=== PATIENT | female | born 1975 | race Caucasian/White ===

== ENCOUNTER 2024-10-20 09:51 | Outpatient (CLI) | payer OTHER, SELFPAY ==
--- NOTE | ~2024-10-20 | US_ITS ---
Pelvic ultrasound. Clinical History: Dysfunctional uterine bleeding Technique: Realtime transabdominal and transvaginal scanning of the pelvis was performed. Color flow Doppler and Doppler spectral analysis were performed. Findings: The uterus is anteverted. The endometrial stripe has a thickness of 3 mm. Suspected anteri or wall fibroid measuring 3.5 x 2.1 x 2.7 cm.. The right ovary measures 2.4 x 2.2 x 1.4 cm. Hemorrhagic right ovarian cyst measures 2.2 cm in diamet er. The left ovary is not visualized. No significant left ovarian or adnexal mass is seen. There is no evidence of free fluid in the cul de sac. Impression: Small hemorrhagic/complex right ovarian cyst measuring 2.2 cm is. Probable uterine fibroid, as above. Reviewed, dictated and finalized at [facility]. Impression: Small hemorrhagic/complex right ovarian cyst measuring 2.2 cm is. Probable uterine fibroid, as above.
--- OUTSIDE RECORDS SUMMARY | 2024-10-20 10:31 | XMS_ITS ---
Author Organization Unknown Address [address] [place] [address] [phone] Phone Care Team Providers Care Weatherization Administrator Name Role Phone [facility] Attending Unavailable NAGI Cole Primary Unavailable Immunization Immunization Date Status Additional Notes Code Code System Tdap 06/03/2013 Completed 115 CVX COVID-19, mRNA, LNP-S, PF, 1 00 mcg/0.5mL dose or 50 mcg/0.25mL dose 10/10/2020 Completed 207 CVX COVID-19, mRNA, LNP-S, PF, 1 00 mcg/0.5mL dose or 50 mcg/0.25mL dose 11/12/2020 Completed 207 CVX COVID-19, mRNA, LNP-S, PF, 1 00 mcg/0.5mL dose or 50 mcg/0.25mL dose 07/19/2021 Completed 207 CVX COVID-19, mRNA, LNP-S, PF, 5 0 mcg/0.5 mL 06/03/2023 Completed 312 CVX Results 4 PLEX RESPIRATORY COVID FLU RSV PCR - Collect Date/Time: 08/13/2024 09:48 [facility] ID: [id number] [address] [place] [address], [phone] LOINC: 49694-0 Test Value Unit Reference Range Code Code System Flag SARS CoV2 PCR NEGATIVE FLU A PCR NEGATIVE FLU B PCR NEGATIVE RSV PCR POSITIVE A SEND TO [facility]? YES Social History Type Status Start Date End Date Code Code Syst em Smoking History Never smoker (Never Smoked) [id number] SNOMED CT Sex Female Hospital Discharge Instructions Should you have any questions prior to discharge, please contact a member of your healthcare team. If you have left the hospital and have any questions, please contact your primary care physician. Reason For Referral No Data Found Plan of Treatment Digital Bill Screen Bilateral (23350) Digital Bill Diag L Unilateral (10994) 0 08/12/2023 US Breast (46884) 08/12/2023 Digital Bill Diag L Unilateral (32262) 0 08/12/2023 US Breast (24789) 08/12/2023 Digital Bill Diag L Unilateral (88168) 1 US Breast (77386) 05/04/2024 Digital Bill Diag L Unilateral (37556) 1 US Breast (49162) 05/04/2024 Digital Bill Diag L Unilateral (71537) 0 10/28/2023 US Breast (54396) 10/28/2023 Digital Bill Diag L Unilateral (45892) 0 10/28/2023 US Breast (79354) 10/28/2023 Digital Bill Diag Bilateral (73061) 07/03 US Breast (24085) 07/13/2024 Digital Bill Diag Bilateral (61810) 07/03 US Breast (66258) 07/13/2024 Encounters Encounter Diagnosis Start Date Code Code Sys tem Fever, unspecified 08/13/2024 SNOMED-CT Personal Care Team Section Performer Name Performer Role Active Date Inactive MIRTHA Marmolejo PCP - Primary care physician 2022-04-21
--- OUTSIDE RECORDS SUMMARY | 2024-10-20 10:31 | XMS_ITS ---
Author Organization Unknown Address [address] [place] [address] [phone] Phone Care Team Providers Care Recruiting Internship Name Role Phone NAGI Cole Attending Unavailable Immunization Immunization Date Status Additional Notes [...] mcg/0.5 mL 06/03/2023 Completed 312 CVX Results DIG 3D BILL SCREENING BILATER AL - Completed: 07/07/2023 10:21 LOINC: See Scanned Image Attachment for Report Dictated By: Trans Initials: BG Trans Date: 07/09/23 10:55 <<REPDIST>> Social History Type Status Start Date End Date Code Code Syst em Smoking History Never smoker (Never Smoked) [id number] SNOMED CT Sex Female Hospital Discharge Instructions Should you have any questions prior to discharge, please contact a member of your healthcare team. If you have left the hospital and have any questions, please contact your primary care physician. Reason For Referral No Data Found Plan of Treatment Digital Bill Screen Bilateral (01614) Digital Bill Diag L Unilateral (86054) 0 08/12/2023 US Breast (16695) 08/12/2023 Digital Bill Diag L Unilateral (32388) 0 08/12/2023 US Breast (10258) 08/12/2023 Digital Bill Diag L Unilateral (32628) 1 US Breast (75496) 05/04/2024 Digital Bill Diag L Unilateral (62399) 1 US Breast (67230) 05/04/2024 Digital Bill Diag L Unilateral (29671) 0 10/28/2023 US Breast (96670) 10/28/2023 Digital Bill Diag L Unilateral (63157) 0 10/28/2023 US Breast (03999) 10/28/2023 Digital Bill Diag Bilateral (81453) 07/03 US Breast (73889) 07/13/2024 Digital Bill Diag Bilateral (17379) 07/03 US Breast (32719) 07/13/2024 Encounters Encounter Diagnosis Start Date Code Code Sys tem Encounter for screening mamm ogram for malignant neoplasm of breast 07/07/2023 SNOMED-CT Personal Care Team Section Performer Name Performer Role Active Date Inactive Da te MIRTHA LAZAR PCP - Primary care physician 2022-04-21 Imaging Narrative Notes [facility] 07/09/2023 10:[address] [address] RADIOLOGY REPORT Patient Number: [id number] Patient Name: BJ MONTE Type: O/P MR Number: [id number] : 1975 Age: 48 Sex: F Room #: Admit Date: 07/07/23 Discharge Date 07/07/23 Ordering Physician: NAGI Cole Family Physician: NAGI Albert Physician: X-Ray Number : [id number] DIG 3D BILL SCREENING BILATERA 31147 COMPLETE:07/07/23 10:21 12467 (REASONS-DIG 3D BILL SCREENING BILATERAL: SCREENING See Scanned Image Attachment for Report Dictated By: Trans Initials: Trans Date: 07/09/23 10:55 <<REPDIST>>
--- OUTSIDE RECORDS SUMMARY | 2024-10-20 10:31 | XMS_ITS ---
Author Organization Unknown Address [address] [place] [address] [phone] Phone Care Team Providers Care Beer Still Runner Compounder Name Role Phone CHITO ULRICHIE Attending Unavailable NAGI Cole Primary Unavailable Immunization [...] mcg/0.5 mL 06/03/2023 Completed 312 CVX Results BASIC METABOLIC PANEL - Connor ect Date/Time: 11/10/2023 15:30 [facility] ID: [id number] [address] [place], [place], [id number] LOINC: 07327-9 Test Value Unit Reference Range Code Code System Flag FASTING NO BUN 15 mg/dL L=7 H=20 3094-0 LOINC CREATININE 0.90 mg/dL L=0.52 H=1.04 2160-0 LOINC GLUCOSE 94 mg/dL L=74 H=106 2345-7 LOINC CALCIUM 9.6 mg/dL L=8.3 H=10.5 26966-3 LOINC SODIUM 140 mmol/L L=132 H=144 2951-2 LOINC POTASSIUM 3.4 mmol/L L=3.5 H=5.1 2823-3 LOINC L CHLORIDE 104 mmol/L L=98 H=107 2075-0 LOINC CO2 24.0 mmol/L L=22.0 H=30.0 8-9 LOINC ANION GAP 15 L=10 H=20 90181-4 LOINC BUN/CREAT 16.7 3097-3 LOINC AGE 48 75633-6 LOINC eGFR NON-AFR 70 ml/min eGFR AFR AMER 85 ml/min Social History Type Status Start Date End Date Code Code Syst em Smoking History Never smoker (Never Smoked) [id number] SNOMED CT Sex Female Hospital Discharge Instructions Should you have any questions prior to discharge, please contact a member of your healthcare team. If you have left the hospital and have any questions, please contact your primary care physician. Reason For Referral No Data Found Plan of Treatment Digital Bill Screen Bilateral (49761) Digital Bill Diag L Unilateral (37734) 0 08/12/2023 US Breast (85829) 08/12/2023 Digital Bill Diag L Unilateral (52292) 0 08/12/2023 US Breast (52131) 08/12/2023 Digital Bill Diag L Unilateral (98393) 1 US Breast (93436) 05/04/2024 Digital Bill Diag L Unilateral (55709) 1 US Breast (44684) 05/04/2024 Digital Bill Diag L Unilateral (83693) 0 10/28/2023 US Breast (40961) 10/28/2023 Digital Bill Diag L Unilateral (72962) 0 10/28/2023 US Breast (20115) 10/28/2023 Digital Bill Diag Bilateral (08953) 07/03 US Breast (39174) 07/13/2024 Digital Bill Diag Bilateral (09129) 07/03 US Breast (20647) 07/13/2024 Encounters Encounter Diagnosis Start Date Code Code Sys tem Hypokalemia 11/10/2023 SNOMED-CT Personal Care Team Section Performer Name Performer Role Active Date Inactive Da te QUARTON, MIRTHA PCP - Primary care physician 2022-04-21
--- OUTSIDE RECORDS SUMMARY | 2024-10-20 10:31 | XMS_ITS ---
Author Organization Unknown Address [address] [place] [address] [phone] Phone Care Team Providers Care Radio Repair Teacher Name Role Phone CHITO ULRICHIE Attending Unavailable [...] Completed 312 CVX Results DIG 3D BILL DIAG L UNILATERA - Completed: 05/04/2024 09:43 LOINC: See Scanned Image Attachment for Report Dictated By: Trans Initials: BG Trans Date: 05/05/24 15:08 <<REPDIST>> Social History Type Status Start Date End Date Code Code Syst em Smoking History Never smoker (Never Smoked) [id number] SNOMED CT Sex Female Hospital Discharge Instructions Should you have any questions prior to discharge, please contact a member of your healthcare team. If you have left the hospital and have any questions, please contact your primary care physician. Reason For Referral No Data Found Plan of Treatment Digital Bill Screen Bilateral (95292) Digital Bill Diag L Unilateral (80683) 0 08/12/2023 US Breast (52615) 08/12/2023 Digital Bill Diag L Unilateral (11222) 0 08/12/2023 US Breast (18530) 08/12/2023 Digital Bill Diag L Unilateral (90429) 1 US Breast (78523) 05/04/2024 Digital Bill Diag L Unilateral (87232) 1 US Breast (65628) 05/04/2024 Digital Bill Diag L Unilateral (68707) 0 10/28/2023 US Breast (13951) 10/28/2023 Digital Bill Diag L Unilateral (58382) 0 10/28/2023 US Breast (98917) 10/28/2023 Digital Bill Diag Bilateral (32183) 07/03 US Breast (46400) 07/13/2024 Digital Bill Diag Bilateral (01496) 07/03 US Breast (02477) 07/13/2024 Encounters Encounter Diagnosis Start Date Code Code Sys tem Disorder of breast 05/04/2024 [id number] SNOMED-CT Personal Care Team Section Performer Name Performer Role Active Date Inactive Da MIRTHA Shelley PCP - Primary care physician 2022-04-21 Imaging Narrative Notes [facility] 05/05/2024 15:[address] [address] RADIOLOGY REPORT Patient Number: [id number] Patient Name: BJ MONTE Type: O/P MR Number: [id number] : 1975 Age: 48 Sex: F Room #: Admit Date: 05/04/24 Discharge Date 05/04/24 Ordering Physician: CHITO GOLDMAN Family Physician: NAGI Albert Physician: X-Ray Number : [id number] DIG 3D BILL DIAG L UNILATERA [id number] COMPLETE:05/04/24 09:43 TLS [id number] (REASONS-DIG 3D BILL DIAG L UNILATERAL: asymmetry See Scanned Image Attachment for Report Dictated By: Trans Initials: BG Trans Date: 05/05/24 15:08 <<REPDIST>>
--- OUTSIDE RECORDS SUMMARY | 2024-10-20 10:32 | XMS_ITS ---
Author Organization Unknown Address [address] [place] [address] [phone] Phone Care Team Providers Care Metal Reed Tuner Name Role Phone CHITO ULRICHIE Attending Unavailable [...] 3D BILL DIAG L UNILATERA - Completed: 10/28/2023 09:41 LOINC: See Scanned Image Attachment for Report Dictated By: Trans Initials: BG Trans Date: 10/29/23 09:33 <<REPDIST>> US BREAST LEFT LTD - Complet ed: 10/28/2023 10:17 LOINC: See Scanned Image Attachment for Report Dictated By: Trans Initials: BG Trans Date: 10/29/23 09:32 <<REPDIST>> Social History Type Status Start Date End Date Code Code Syst em Smoking History Never smoker (Never Smoked) [id number] SNOMED CT Sex Female Hospital Discharge Instructions Should you have any questions prior to discharge, please contact a member of your healthcare team. If you have left the hospital and have any questions, please contact your primary care physician. Reason For Referral No Data Found Plan of Treatment Digital Bill Screen Bilateral (35745) Digital Bill Diag L Unilateral (94640) 0 08/12/2023 US Breast (39333) 08/12/2023 Digital Bill Diag L Unilateral (92776) 0 08/12/2023 US Breast (37922) 08/12/2023 Digital Bill Diag L Unilateral (59720) 1 US Breast (76494) 05/04/2024 Digital Bill Diag L Unilateral (12837) 1 US Breast (63152) 05/04/2024 Digital Bill Diag L Unilateral (69059) 0 10/28/2023 US Breast (61065) 10/28/2023 Digital Bill Diag L Unilateral (06956) 0 10/28/2023 US Breast (58112) 10/28/2023 Digital Bill Diag Bilateral (74766) 07/03 US Breast (15163) 07/13/2024 Digital Bill Diag Bilateral (04355) 07/03 US Breast (39608) 07/13/2024 Encounters Encounter Diagnosis Start Date Code Code Sys tem Other specified disorders of breast 10/28/2023 SNOMED-CT Personal Care Team Section Performer Name Performer Role Active Date Inactive Da MIRTHA Shelley PCP - Primary care physician 2022-04-21 Imaging Narrative Notes [facility] 10/29/2023 09:[address] [address] RADIOLOGY REPORT Patient Number: [id number] Patient Name: BJ MONTE Type: O/P MR Number: [id number] : 1975 Age: 48 Sex: F Room #: Admit Date: 10/28/23 Discharge Date 10/28/23 Ordering Physician: CHITO GOLDMAN Family Physician: NAGI Albert Physician: X-Ray Number : [id number] US BREAST LEFT LTD [id number] COMPLETE:10/28/23 10:17 [facility] [address] See Scanned Image Attachment for Report Dictated By: Trans Initials: BG Trans Date: 10/29/23 09:32 <<REPDIST>> [facility] 10/29/2023 09:[address] [address] RADIOLOGY REPORT Patient Number: [id number] Patient Name: BJ MONTE Type: O/P MR Number: [id number] : 1975 Age: 48 Sex: F Room #: Admit Date: 10/28/23 Discharge Date 10/28/23 Ordering Physician: CHITO GOLDMAN Family Physician: NAGI Albert Physician: X-Ray Number : [id number] DIG 3D BILL DIAG L UNILATERA [id number] COMPLETE:10/28/23 09:41 TALI 30173 (REASONS-DIG 3D BILL DIAG L UNILATERAL: BREAST ASYMMETRY See Scanned Image Attachment for Report Dictated By: Lala Initials: BG Reeves Date: 10/29/23 09:33 <<REPDIST>>
--- OUTSIDE RECORDS SUMMARY | 2024-10-20 10:32 | XMS_ITS ---
Author Organization Unknown Address [address] [place] [address] [phone] Phone Care Team Providers Care Asp Net C Developer Name Role Phone CHITO GOLDMAN Attending Unavailable NAGI Cole Primary Unavailable Immunization [...] 3D BILL DIAG L UNILATERA - Completed: 07/13/2024 11:32 LOINC: See Scanned Image Attachment for Report Dictated By: Trans Initials: BG Trans Date: 07/14/24 14:46 <<REPDIST>> Social History Type Status Start Date End Date Code Code Syst em Smoking History Never smoker (Never Smoked) [id number] SNOMED CT Sex Female Hospital Discharge Instructions Should you have any questions prior to discharge, please contact a member of your healthcare team. If you have left the hospital and have any questions, please contact your primary care physician. Reason For Referral No Data Found Plan of Treatment Digital Bill Screen Bilateral (82186) Digital Bill Diag L Unilateral (00112) 0 08/12/2023 US Breast (82215) 08/12/2023 Digital Bill Diag L Unilateral (10753) 0 08/12/2023 US Breast (14570) 08/12/2023 Digital Bill Diag L Unilateral (83085) 1 US Breast (83928) 05/04/2024 Digital Bill Diag L Unilateral (77293) 1 US Breast (11394) 05/04/2024 Digital Bill Diag L Unilateral (25137) 0 10/28/2023 US Breast (61029) 10/28/2023 Digital Bill Diag L Unilateral (28094) 0 10/28/2023 US Breast (78683) 10/28/2023 Digital Bill Diag Bilateral (77062) 07/03 US Breast (77891) 07/13/2024 Digital Bill Diag Bilateral (06801) 07/03 US Breast (22038) 07/13/2024 Encounters Encounter Diagnosis Start Date Code Code Sys tem Disorder of breast 07/13/2024 [id number] SNOMED-CT Personal Care Team Section Performer Name Performer Role Active Date Inactive Da te MIRTHA LAZAR PCP - Primary care physician 2022-04-21 Imaging Narrative Notes [facility] 07/14/2024 14:[address] [address] RADIOLOGY REPORT Patient Number: [id number] Patient Name: BJ MONTE Type: O/P MR Number: [id number] : 1975 Age: 49 Sex: F Room #: Admit Date: 07/13/24 Discharge Date 07/13/24 Ordering Physician: CHITO GOLDMAN Family Physician: NAGI Albert Physician: X-Ray Number : [id number] DIG 3D BILL DIAG L UNILATERA [id number] COMPLETE:07/13/24 11:32 TLS [id number] (REASONS-DIG 3D BILL DIAG L UNILATERAL: BREAST ASYMMETRY See Scanned Image Attachment for Report Dictated By: Trans Initials: BG Trans Date: 07/14/24 14:46 <<REPDIST>>
--- OUTSIDE RECORDS SUMMARY | 2024-10-20 10:32 | XMS_ITS ---
Author Organization Unknown Address [address] [place] [address] [phone] Phone Care Team Providers Care Robotic Technician Name Role Phone PALOMA MARTINEZ Attending Unavailable NAGI Cole Primary Unavailable Immunization [...] mcg/0.5 mL 06/03/2023 Completed 312 CVX Results POTASSIUM - Collect Date/Dale e: 11/08/2023 13:33 [facility] ID: [id number] [address] [place] [address], [id number] LOINC: 2823-3 Test Value Unit Reference Range Code Code System Flag POTASSIUM 3.2 mmol/L L=3.5 H=5.1 2823-3 LOINC L URINALYSIS w/Microscopy/C&S if indicated - Collect Date/Time: 11/08/2023 12:00 [facility] ID: [id number] [address] [place], [place], [phone] LOINC: 62735-2 Test Value Unit Reference Range Code Code System Flag UR SOURCE VOIDED 09854-7 LOINC COLOR YELLOW YELLOW 5778-6 LOINC CLARITY CLEAR CLEAR 54461-2 LOINC SPEC GRAVITY 1.015 1.000-1.030 5811-5 LOINC PH 7.5 5.0 - 6.5 5803-2 LOINC LEUK EST NEGATIVE NEGATIVE 5799-2 LOINC NITRATE NEGATIVE NEGATIVE PROTEIN NEGATIVE NEGATIVE 5804-0 LOINC GLUCOSE NEGATIVE NEGATIVE 55603-2 LOINC KETONES NEGATIVE NEGATIVE 71703-0 LOINC UROBILINOGEN 0.2 NEGATIVE 5818-0 LOINC BILIRUBIN NEGATIVE NEGATIVE 83357-2 LOINC BLOOD NEGATIVE NEGATIVE 21787-0 LOINC WBC 0-2 0 - 2 73991-2 LOINC RBC 0-2 0 - 2 30061-3 LOINC EPITHELIAL FEW RARE-FEW 71022-5 LOINC BACTERIA NONE SEEN NONE SEEN 82320-8 LOINC MUCUS NONE SEEN NONE SEEN 8247-9 LOINC YEAST NOT PRESENT NOT PRESENT 87730-9 LOINC CASTS NONE SEEN 52684-9 LOINC CRYSTALS NONE SEEN 65187-1 LOINC CULTURE? NO 8251-1 LOINC DIAGNOSIS N/A OD [id number] YLATE-ETOH - Collect Date/Time: 11/08/2023 10:44 [facility] ID: [id number] [place], [phone] LOINC: Test Value Unit Reference Range Code Code System Flag ACETAMINOPHEN < 10 ug/dL L=0 H=10 3298-7 LOINC SALICYLATE < 1 mg/dL L=0 H=5 4024-6 LOINC ALCOHOL < 10.00 mg/dL L=0.00 H=50.00 5643-2 LOINC PRO BNP - Collect Date/Time: 11/08/2023 10:44 [facility] ID: [id number] [place], [id number] LOINC: 51859-1 Test Value Unit Reference Range Code Code System Flag Pro BNP2 61 pg/mL L=0 H=900 76489-6 LOINC CBC W/ DIFF - Collect Date/T asif: 11/08/2023 10:44 [facility] ID: [id number] [address] [place], [place], [phone] LOINC: 86781-2 Test Value Unit Reference Range Code Code System Flag WBC 7.5 10^3uL L=4.8 H=10.8 RBC 5.11 10^6uL L=4.20 H=5.40 HEMOGLOBIN 15.3 g/dL L=12.0 H=16.0 718-7 LOINC HEMATOCRIT 43.6 VOL% L=37.0 H=47.0 4544-3 LOINC MCV 85.3 fL L=81.0 H=99.0 MCH 29.9 pg L=27.0 H=32.0 MCHC 35.1 g/dL L=32.0 H=36.0 PLATELETS 295 10^3uL L=100 H=400 88310-2 LOINC RDW 12.0 % L=11.7 H=15.5 %GRAN 48.4 % L=40.0 H=70.0 04286-1 LOINC %LYMPH 37.6 % L=20.0 H=45.0 736-9 LOINC %MONO 9.2 % L=2.0 H=10.0 27976-8 LOINC %EOS 3.5 % L=0.0 H=6.0 713-8 LOINC %BASO 1.2 % L=0.0 H=3.0 706-2 LOINC #NEUT 3.6 10^3uL L=1.9 H=7.6 86885-0 LOINC #LYMPH 2.8 10^3uL L=0.9 H=4.9 66812-0 LOINC #MONO 0.7 10^3uL L=0.1 H=0.9 87210-1 LOINC #EOS 0.3 10^3uL L=0.0 H=0.6 712-0 LOINC #BASO 0.09 10^3uL L=0.00 H=0.10 22095-0 LOINC #IM GRANS 0.0 10^3uL L=0.0 H=7.0 52458-1 LOINC %IM GRANS 0.1 % L=0.0 H=5.0 10116-1 LOINC %NRB 0.0 L=0.0 H=0.2 26049-6 LOINC #NRB 0.000 L=0.000 H=0.012 49232-4 LOINC MANUAL DIFF NOT INDICATED RBC MORPH NOT INDICATED PTT - Collect Date/Time: 02/2024 10:44 [facility] ID: [id number] [address] [place] [address], [phone] LOINC: 41320-5 Test Value Unit Reference Range Code Code System Flag PTT 28.3 Sec L=23.0 H=31.2 TROPONIN LEVEL - Collect Torrey e/Time: 11/08/2023 10:44 [facility] ID: [id number] [address] [place] [address], [phone] LOINC: 86101-5 Test Value Unit Reference Range Code Code System Flag TROPONIN < 0.012 ng/mL L=0.000 H=0.033 55192-4 LOINC PROTIME - Collect Date/Time: 11/08/2023 10:44 [facility] ID: [id number] [address] [place] [address], [phone] LOINC: 89633-3 Test Value Unit Reference Range Code Code System Flag PT 10.0 Sec L=9.7 H=11.7 47298-4 LOINC INR 0.9 Sec L=0.9 H=1.1 31814-6 LOINC COMPREHENSIVE METABOLIC PANE L - Collect Date/Time: 11/08/2023 10:44 [facility] ID: [id number] [address] [place] [address], [id number] LOINC: 22351-9 Test Value Unit Reference Range Code Code System Flag FASTING UNKNOWN BUN 10 mg/dL L=7 H=20 3094-0 LOINC CREATININE 0.80 mg/dL L=0.52 H=1.04 2160-0 LOINC GLUCOSE 111 mg/dL L=74 H=106 2345-7 LOINC H SODIUM 139 mmol/L L=132 H=144 2951-2 LOINC POTASSIUM 2.9 mmol/L L=3.5 H=5.1 2823-3 LOINC LL CHLORIDE 104 mmol/L L=98 H=107 2075-0 LOINC CO2 17.0 mmol/L L=22.0 H=30.0 2028-9 LOINC L ANION GAP 21 L=10 H=20 69233-4 LOINC H OSMOLALITY 288 mOs/kG L=280 H=296 87060-4 LOINC BUN/CREAT 12.5 3097-3 LOINC CALCIUM 10.6 mg/dL L=8.3 H=10.5 70304-3 LOINC H AST 50 U/L L=15 H=46 1920-8 LOINC H ALT 51 U/L L=9 H=72 1742-6 LOINC ALKALINE PHOS 79 U/L L=38 H=126 6768-6 LOINC TOTAL BILI 0.4 mg/dL L=0.2 H=1.3 1975-2 LOINC ALBUMIN 5.2 G/dL L=3.5 H=5.0 1751-7 LOINC H TOTAL PROTEIN 9.9 g/L L=6.3 H=8.2 2885-2 LOINC H A/G RATIO 1.1 08014-0 LOINC AGE 48 82701-4 LOINC eGFR NON-AFR 81 ml/min eGFR AFR AMER 98 ml/min CHEST 2V - Completed: 2023 11:49 LOINC: EXAM DESCRIPTION: CHEST 2V REASON FOR STUDY: vomiting, dizzy, weak x's 3 days Duration: 3 days TECHNIQUE: Frontal and lateral radiographic view(s) of the chest. COMPARISON: None FINDINGS: The heart, mediastinum, and pulmonary vasculature are grossly unremarkable. There is no definite evidence of a pneumothorax. There is no definite evidence of a focal consolidation or pleural effusion. There are degenerative changes of the spine. Postsurgical clips are noted in the right upper quadrant of the abdomen. IMPRESSION: ? ? No acute cardiopulmonary abnormality. THIS IS AN ELECTRONICALLY VERIFIED FINAL REPORT 11/08/2023 11:57 AM - Electronically signed by Patrica Palafox D.O. PS: PS Report ID: [id number] Reading Location: [id number] CT BRAIN WO CONTRAST - Compl eted: 11/08/2023 11:49 LOINC: EXAM DESCRIPTION: CT BRAIN WO CONTRAST REASON FOR STUDY: vomiting, dizzy, weak x's 3 days Duration: 3 days TECHNIQUE: Axial images acquired through the brain without intravenous contrast. Images stored on PACS. Automated exposure control was used as a dose optimization technique for this examination. COMPARISON: None FINDINGS: BRAIN: There is no definite evidence of acute intracranial hemorrhage. There is no definite evidence of an extra-axial fluid collection. There is no significant midline shift or focal mass effect. The ventricles are normal in size and position. CALVARIUM: No fracture. SINUSES/MASTOIDS: There is mild mucosal thickening of the bilateral ethmoid air cells. The remainder of the visualized paranasal sinuses and bilateral mastoid air cells are grossly clear. ORBITS: No significant abnormality. OTHER: No other significant abnormality. IMPRESSION: ? ? No definite evidence of acute intracranial hemorrhage. THIS IS AN ELECTRONICALLY VERIFIED FINAL REPORT 11/08/2023 11:57 AM - Electronically signed by Patrica Palafox D.O. PS: PS Report ID: [id number] Reading Location: [id number] Social History Type Status Start Date End Date Code Code Syst em Smoking History Never smoker (Never Smoked) [id number] SNOMED CT Sex Female Hospital Discharge Instructions Should you have any questions prior to discharge, please contact a member of your healthcare team. If you have left the hospital and have any questions, please contact your primary care physician. Reason For Referral No Data Found Plan of Treatment Digital Bill Screen Bilateral (11616) Digital Bill Diag L Unilateral (14202) 0 08/12/2023 US Breast (47959) 08/12/2023 Digital Bill Diag L Unilateral (63422) 0 08/12/2023 US Breast (10386) 08/12/2023 Digital Bill Diag L Unilateral (99810) 1 US Breast (70258) 05/04/2024 Digital Bill Diag L Unilateral (63148) 1 US Breast (77870) 05/04/2024 Digital Bill Diag L Unilateral (17948) 0 10/28/2023 US Breast (80695) 10/28/2023 Digital Bill Diag L Unilateral (73400) 0 10/28/2023 US Breast (93480) 10/28/2023 Digital Bill Diag Bilateral (21104) 07/03 US Breast (07539) 07/13/2024 Digital Bill Diag Bilateral (61299) 07/03 US Breast (33573) 07/13/2024 Encounters Encounter Diagnosis Start Date Code Code Sys tem Muscle weakness (generalized) 11/08/2023 SNOMED-CT Personal Care Team Section Performer Name Performer Role Active Date Inactive MIRTHA Marmolejo PCP - Primary care physician 2022-04-21 Imaging Narrative Notes
--- OUTSIDE RECORDS SUMMARY | 2024-10-20 10:32 | XMS_ITS | Clinical Summary ---
Author Organization [facility] Address [facility] [place] [address] Care Team Providers Care [employer] Maker Name Role Phone Julieta Box Primary Care Provider [phone] Social History Tobacco Use Types Packs/Day Years Used Date Smoking Tobacco: Never Assessed Comments Unknown Sex and Gender Information Value Date Recorded Sex Assigned at Not on file Legal Sex Female 1:34 PM [employer] Gender Identity Not on file Sexual Orientation Not on file Plan of Treatment Health Maintenance Due Date Last Done Comments Cervical Cancer Screening Pap Smear (Age 30 to 64) Every 3 Years 1973 Colorectal Cancer Screening Colonoscopy (10 Years) 1973 Annual Physical 1976 Hepatitis C 1991 Hepatitis B Vaccines (1 of 3 - 19+ 3-dose series) 1992 Cervical Cancer Screening Pap with HPV Testing (Age 30 to 64) Every 5 Years 2003 Cervical Cancer Screening with HPV 2003 Mammogram Screening 2013 Zoster Vaccines (1 of 2) 2023 DTaP, Tdap and Td Vaccines (2 - Td or Tdap) 06/03/2023 06/03/2013 COVID-19 Vaccine ( season) 2024 06/03/2023, 07/19/2021, 11/12/2020, Additional history exists Influenza Adult (#1) 2024 Meningococcal B Vaccine Aged Out No l onger eligible based on patient's age to complete this topic Meningococcal Vaccine Aged Out No mara jennyfer eligible based on patient's age to complete this topic Pneumococcal Vaccine: Pediatrics (0 to 5 Years) and At-Risk Patients (6 to 64 Years) Aged Out No longer eligible based on patient's age to complete this topic RSV Immunizations Under 20 Months Aged Out No longer eligible based on patient's age to complete this topic Insurance MEDICAID Care Teams Can[employer] Good[employer] Maker Relationship Specialty Start Date End Date Julieta Box FNP [address] [place] [id number] PCP - General NURSE PRACTITIONER 10/14/23
== END 2024-10-20 09:52 | disposition home or self-care (01) ==
LOC: CHSIMG 09:54
PROVIDERS: PCP Nurse Practitioner; Visit Provider Nurse Practitioner
DX: N93.8 Other specified abnormal uterine and vaginal bleeding (principal); N83.201 Unspecified ovarian cyst, right side
CPT/HCPCS: 76830; 76856